=== PATIENT | male | born 1940 | race Hispanic/Latino ===

== ENCOUNTER 2019-04-08 14:12 | Emergency (ER) | payer MEDICARE ==
--- NOTE | 2019-04-08 15:33 | Event Note ---
ED Screening Note Date of service: 04/08/19 Time: 15:29 ED Screening Note: 78 y.o. M. that presents to the ER with lacerations and facial pain after falling on escalator 1.5 hrs [employer]NA[employer]. Patient spouse reports loc. Patient states he don't know what happened. This initial assessment/diagnostic orders/clinical plan/treatment(s) is/are subject to change based on patients health status, clinical progression and re- assessment by fellow clinical providers in the ED. Further treatment and workup at subsequent clinical providers discretion. Patient/guardian urged not to elope from the ED as their condition may be serious if not clinically assessed and managed. Initial orders include: CT of facial bones and head
--- NOTE | 2019-04-08 17:41 | Cat Scan Report ---
CT head/brain wo con INDICATION / CLINICAL INFORMATION: 78 years Male; loc, lacerations, s/p fall. TECHNIQUE: Routine CT head without contrast. All CT scans at this location are performed using CT dos e reduction for ALARA by means of automated exposure control. COMPARISON: None. FINDINGS: BRAIN / INTRACRANIAL CONTENTS: Small subdural collection is seen along the leftward aspect of the fal x cerebri, as well as along the tentorium cerebelli on the left. No mass effect associated with this finding. Otherwise, no acute hemorrhage, mass effect, midline shift, hydrocephalus, or acute, large territori al infarct. Mild cerebral and cerebellar atrophy. There are mild areas of decreased attenuation in the white matter of the cerebral hemispheres. These are nonspecific findings and may be related to microangiopathy (hypertension, diabetes, atheroscleros is), given the patient's age. It might be difficult to evaluate for small areas of ischemia without d iffusion imaging by MRI. CRANIOCERVICAL JUNCTION: No significant abnormality. ORBITS: No significant abnormality of visualized orbits. SINUSES / MASTOIDS: Bilateral nasal bone fractures, as well as anterior nasal septal fracture noted. ADDITIONAL FINDINGS: Atherosclerotic disease is seen in the anterior and posterior circulation. IMPRESSION: 1. Small subdural collection, as described above without significant mass effect. 2. Nasal bone fractures noted. These findings are considered a critical value. The exam was completed on 04/08/2019 4:13 PM. The exam was reviewed at 4:28 PM and triage area at [facility] was notified at 4:34 PM. Signer Name: Samson Crawley MD, III Signed: 04/08/2019 5:36 PM Workstation Name: [email or web address]
--- NOTE | 2019-04-08 17:44 | Cat Scan Report ---
CT facial bones wo con INDICATION / CLINICAL INFORMATION: 78 years Male; loc, lacerations, s/p fall. 78-year-old male TECHNIQUE: Thin cut axial images obtained through the facial region. Sagittal and coronal reconstructions perfor med. All CT scans at this location are performed using CT dose reduction for ALARA by means of automa aníbal exposure control. COMPARISON: None available. FINDINGS: Comminuted fracture of the right nasal bone is seen. Slight fracture of the anterior nasal bone seen on the left. There is also a nasal septal fracture suggested anteriorly, adjacent to the nasal bones. No other signs of fracture appreciated. There is mucosal thickening in the floor the left maxillary antrum. Orbits are grossly normal. Please see report from CT of the head performed same day for pertinent information about very small s ubdural collection along the falx cerebri and left tentorium cerebelli. IMPRESSION: 1. Bilateral nasal fractures-right greater than left. Small nasal septal fracture anteriorly. Signer Name: Samson Crawley MD, III Signed: 04/08/2019 5:39 PM Workstation Name: [id number]
[2019-04-08] MEDS ORDERED: LIDOCAINE (1%) 10 MG/1 ML VIAL 20 ML MDV ONE (17:54)
[2019-04-08] MEDS ORDERED: LIDOCAINE 1%/EPINEPHRINE 1:100,000 VIAL (20 ML) INFILTRATI ONE (18:05)
[2019-04-08] MEDS ORDERED: HYDROcodone/ACETAMINOPHEN 5-325 MG TAB PO ONE (18:47)
[2019-04-08] MEDS ORDERED: TETANUS,DIPH,PERTUSS(ACELL) VACCINE 0.5 ML SYRINGE IM ONE (18:47)
--- NOTE | 2019-04-08 19:00 | Emergency Department Report ---
ED Fall HPI - General Chief Complaint: Fall Stated Complaint: FACIAL INJURY/HIGH GLUCOSE Time Seen by Provider: 04/08/19 15:28 Source: patient Mode of arrival: Wheelchair - History of Present Illness Initial Comments: Mr. Corrae is a 78 yo male with hx of DM, HTN, CAD s/p cardiac stents presents s/p fall at noon. [place] He face planted with LOC. He has nasal pain with multiple face lacerations. He has left neck and upper back pain. He takes aspirin. He does not recall taking any antiplatement or anticoagulant medication. He lives in [place], [place]. He is travelling with his spouse and children from [place], [place]. He does not remember the incident. 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 Also, [place] . Complaint: fall -: Sudden, This afternoon Fall From: from height (distance) (one-story high fell down steep [place] escalator) Fall Witnessed: yes, by family Place Fall Occurred: other (airport) Loss of Consciousness: yes Prolonged Down Time?: no Symptoms Prior to Fall: none - Related Data Allergies Allergy/AdvReac Type Severity Reaction Status Date / Time No Known Allergies Allergy Unverified 04/08/19 14:20 ED Review of Systems ROS: Stated complaint: FACIAL INJURY/HIGH GLUCOSE Other details as noted in HPI Comment: All other systems reviewed and negative Constitutional: denies: fever, malaise Respiratory: denies: cough Cardiovascular: denies: chest pain Gastrointestinal: denies: abdominal pain, nausea, vomiting ED Past Medical Hx - Past Medical History Previous Medical History?: Yes Hx Hypertension: Yes Hx Diabetes: Yes Additional medical history: cardiac stents - Surgical History Past Surgical History?: Yes Additional Surgical History: cardiac stents - Social History Smoking Status: Current Every Day Smoker Substance Use Type: None ED Physical Exam - General Limitations: No Limitations General appearance: alert, in no apparent distress - Head Head exam: Present: normocephalic, other (4 superfical lacerations 2.5 cm in height each above right eyebrown, 2 superfical 1.5 cm nose, 2.5 cm deep central nasal laceration with arterial bleeding) - Eye Eye exam: Present: normal appearance, PERRL, EOMI. Absent: scleral icterus, conjunctival injection - ENT ENT exam: Present: mucous membranes moist - Neck Neck exam: Present: normal inspection, full ROM - Respiratory Respiratory exam: Present: normal lung sounds bilaterally. Absent: respiratory distress, wheezes, rales, rhonchi - Cardiovascular Cardiovascular Exam: Present: regular rate, normal rhythm, normal heart sounds, systolic murmur, diastolic murmur. Absent: rubs, gallop - GI/Abdominal GI/Abdominal exam: Present: soft, normal bowel sounds. Absent: distended, tenderness, guarding, rigid - Rectal Rectal exam: Present: deferred - Extremities Exam Extremities exam: Present: normal inspection - Neurological Exam Neurological exam: Present: alert, oriented X3, normal gait - Expanded Neurological Exam Expanded Patient oriented to: Present: person, place, time Best Eye Response (Stephenson): (4) open spontaneously Best Motor Response (Finn): (6) obeys commands Best Verbal Response (Stephenson): (5) oriented Finn Total: 15 - Psychiatric Psychiatric exam: Present: normal affect, normal mood - Skin Skin exam: Present: warm, dry, intact, normal color. Absent: rash ED Course Vital Signs 04/08/19 04/08/19 15:30 19:29 Temperature 97.9 F Pulse Rate 99 H Respiratory 16 18 Rate Blood Pressure 167/93 O2 Sat by Pulse 97 Oximetry - Laceration /Wound Repair Medial Face Wound Location: face Wound Length (cm): 3 Wound's Depth, Shape: linear Wound Explored: clean Betadine Prep?: No Anesthesia: 1% Lidocaine, Lidocaine w/ Epi Volume Anesthetic (ccs): 5 Wound Debrided: moderate Wound Repaired With: sutures, Dermabond Suture Size/Type: 5:0 Number of Sutures: 5 Layer Closure?: No Sterile Dressing Applied?: No Progress: Tight sutures required for homeostasis for arterial pulsatile bleeding at the superior aspect of the laceration, 5 sutures of 5-0 Ethilon provided hemostasis and good skin approximation simple interrupted fashion The remaining 6 superficial lacerations were repaired with Dermabond ED Medical Decision Making - Radiology Data Radiology results: report reviewed CT head small subdural collection at the left lower aspect of the falx cerebri as well as the tentorium cerebelli on the left without mass effect CT facial bones comminuted bilateral nasal fractures right greater than left small nasal septal fracture CT C-spines no signs of acute bony trauma to the cervical spine right thyroid lobe nodule - Medical Decision Making 1. Subdural hematoma traumatic GCS 15 neurologically intact and ambulatory with assistance 2. Open nasal fractures lacerations repaired Tdap provided 3. Witnessed fall from family, I do not suspect syncope preceding the head injury Critical care attestation.: If time is entered above; I have spent that time in minutes in the direct care of this critically ill patient, excluding procedure time. ED Disposition Clinical Impression: Open nasal fracture, Traumatic subdural hematoma Disposition: [id number]/TX-[id number] ANOTHER TYPE HLTHCARE Is pt being admited?: No Does the pt Need Aspirin: No Condition: Stable
--- NOTE | 2019-04-08 19:26 | Cat Scan Report ---
CT cervical spine wo con INDICATION / CLINICAL INFORMATION: 78 years Male; MAIN: fall neck pain PT NOT IN C [facility]. TECHNIQUE: Axial CT images of the cervical spine were obtained. Sagittal and coronal reformatted images were pr oduced. All CT scans at this location are performed using CT dose reduction for ALARA by means of aut omated exposure control. COMPARISON: None available. FINDINGS: POST-SURGICAL CHANGES: None. ALIGNMENT: Normal cervical lordosis seen without significant scoliosis. VERTEBRAE: No signs of fracture. Vertebral bodies are grossly normal in height throughout. Anterior s pondylosis seen at various levels. There is osseous foraminal narrowing on the right at C4-5 T6-7 from uncinate hypertrophy. Similar fin dings seen on the left at C3-4, C4-5, and C6-7 related uncinate and/or facet hypertrophy. Mild to moderate facet hypertrophy seen at multiple levels. Most marked findings appear to be on the left at C3-4. INTRAVERTEBRAL DISCS: Disc space narrowing seen at C4-5. Mild disc disease seen at various levels. No significant canal stenosis. PARASPINAL SOFT TISSUES: No significant abnormality. ADDITIONAL FINDINGS: Scarring type changes seen in the lung apices. 2.2 cm nodule seen in the right thyroid lobe. IMPRESSION: 1. No signs of acute bony trauma to the cervical spine. 2. Right thyroid lobe nodule as described above. Please see below. INCIDENTAL THYROID NODULE RECOMMENDATIONS Nonpalpable nodules detected on US or other anatomic imaging studies are termed incidentally discover ed nodules or incidentalomas. Nonpalpable nodules have the same risk of malignancy as palpable nodule s with the same size. Generally, only nodules >1 cm should be evaluated, since they have a greater po tential to be clinically significant cancers. (KETAN, 2009). In patients 35 years with an incidental thyroid nodule detected on CT, MRI, or extrathyroidal ultraso und, dedicated thyroid ultrasound is recommended if the nodule is 1.5 cm, has no suspicious imaging f eatures, and if the patient has normal life expectancy. Signer Name: Samson Crawley MD, III Signed: 04/08/2019 7:21 PM Workstation Name: [id number]
[2019-04-08 19:35] VITALS: BP 174/95
== END 2019-04-08 20:29 | disposition other institution (70) ==
LOC: ED 14:12
DX: S01.111A Laceration without foreign body of right eyelid and periocular area, initial encounter (principal); S01.21XA Laceration without foreign body of nose, initial encounter; S06.5X9A Traumatic subdural hemorrhage with loss of consciousness of unspecified duration, initial encounter; I10 Essential (primary) hypertension; E11.9 Type 2 diabetes mellitus without complications; F17.200 Nicotine dependence, unspecified, uncomplicated; I25.10 Atherosclerotic heart disease of native coronary artery without angina pectoris; Z95.5 Presence of coronary angioplasty implant and graft; W10.0XXA Fall (on)(from) escalator, initial encounter; Y93.89 Activity, other specified; Y92.89 Other specified places as the place of occurrence of the external cause; Y99.8 Other external cause status
CPT/HCPCS: 70450; 70486; 72125; 82962; 90471; 90715